=== PATIENT | female | born 1940 | race Caucasian/White ===

== ENCOUNTER 2021-05-05 01:55 | Emergency (ER) | payer MEDICARE, OTHER ==
[~2021-05-05] VITALS: Ht 170.2 cm; Wt 64.5 kg
[~2021-05-05 01:55] MED LIST: BENADRYL50 MG PO; BENICAR20 MG PO; LEVAQUIN 5500 MG/TA1 PO; PEPCID 20MG TAB20 MG PO; PREDNISONE20 MG PO
[2021-05-05 01:56] VITALS: TEMP 98.1
[2021-05-05 02:12] LABS: BASO % 0.5 % (0.0-2.0); EOS % 0.1 % (0-4.0); GRAN # 6.8 (1.4-6.5); GRAN % 79.8 % (42.2-75.2); HEMOGLOBIN 11.5 g/dl (12.5-16.0); LYMPH # 1.4 (1.2-3.4); LYMPH % 16.9 % (20.0-51.0); MEAN CELL VOLUME 87 fl (80.0-100.0); MEAN CORPUSCULAR HEMOGLOBIN 28 pg (27.0-31.0); MEAN CORPUSCULAR HGB CONC 32 g/dl (33.0-37.0); MEAN PLATELET VOLUME 10.3 fl (7.4-10.4); MONO # 0.2 (0.1-0.6); MONO % 2.5 % (1.7-9.3); PLATELET COUNT 371 K/mm3 (130-400); RED BLOOD COUNT 4.14 M/mm3 (4.10-5.30); REDCELL DISTRIBUTION WIDTH-CV 14.2 % (11.5-14.5)
[2021-05-05 02:50] LABS: ALANINE AMINOTRANSFERASE 16 U/L (4-34); ALBUMIN 4.2 gm/dL (3.5-5.0); ALKALINE PHOSPHATASE 89 U/L (50-136); ANION GAP 10 mmol/L (7-16); AST,SGOT 17 U/L (15-37); BILIRUBIN,TOTAL 0.5 mg/dL (0.0-1.0); BLOOD UREA NITROGEN 24 mg/dL (7-17); CALCIUM 9.4 mg/dL (8.4-10.2); CARBON DIOXIDE 16 mmol/L (22-30); CHLORIDE 111 mmol/L (98-107); CREATININE, serum 1.37 (0.52-1.25); GLUCOSE 131 mg/dL (74-106); LIPASE 132 U/L (23-300); POTASSIUM 4.4 mmol/L (3.4-5.0); SODIUM 137 mmol/L (137-145); TOTAL PROTEIN 7.2 gm/dL (6.4-8.2)
[2021-05-05 02:51] LABS: C-REACTIVE PROTEIN < 0.5 mg/dL (0.0-0.9)
[2021-05-05 03:53] LABS: COLLECTION METHOD CATHETER
[2021-05-05 04:11] LABS: MUCOUS Present /lpf; PH 5 (5-8); SQUAMOUS EPITHELIAL 0-2 /hpf; URINE APPEARANCE Hazy; URINE BACTERIA Moderate /hpf; URINE BILIRUBIN Negative (NEGATIVE); URINE BLOOD 1+ (NEGATIVE); URINE COLOR Yellow; URINE GLUCOSE Negative (NEGATIVE); URINE KETONE 1+ (NEGATIVE); URINE LEUKOCYTE ESTERASE 2+ (NEGATIVE); URINE NITRATE Positive (NEGATIVE); URINE PROTEIN(semi-quant) Negative (NEGATIVE); URINE UROBILINOGEN Negative (NEGATIVE)
[2021-05-05] MEDS ORDERED: ZOFRAN ODT4 MG PO ×3 (05:01→05:09)
[2021-05-05] MEDS ORDERED: CEFTIN500 MG PO ×3 (05:01→05:09)
[2021-05-05 05:15] VITALS: BP 144/85; PULSE 88
[2021-05-06] MEDS ORDERED: DULCOLAX STOOL100 MG PO (20:13)
== END 2021-05-05 05:15 | disposition home or self-care (01) ==
LOC: COL.ER 01:55
PROVIDERS: Emergency Medicine
DX: S09.90XA Unspecified injury of head, initial encounter (principal); N39.0 Urinary tract infection, site not specified; I10 Essential (primary) hypertension; Z96.0 Presence of urogenital implants; Z79.899 Other long term (current) drug therapy; W22.8XXA Striking against or struck by other objects, initial encounter
CPT/HCPCS: J0696; J2405; J2550; J7030; Q9967

== ENCOUNTER 2021-05-06 15:48 | Emergency (ER) | payer MEDICARE, OTHER ==
[~2021-05-06] VITALS: Ht 170.2 cm; Wt 65.5 kg
[~2021-05-06 15:48] MED LIST changes: +CEFTIN500 MG PO; +ZOFRAN ODT4 MG PO
[2021-05-06 16:02] VITALS: TEMP 97.6
[2021-05-06 16:26] LABS: BASO % 0.5 % (0.0-2.0); EOS % 0.4 % (0-4.0); HEMATOCRIT 34.4 % (37.0-47.0); HEMOGLOBIN 10.8 g/dl (12.5-16.0); LYMPH # 1.3 (1.2-3.4); LYMPH % 16.3 % (20.0-51.0); MEAN CELL VOLUME 89 fl (80.0-100.0); MEAN CORPUSCULAR HEMOGLOBIN 28 pg (27.0-31.0); MEAN CORPUSCULAR HGB CONC 31 g/dl (33.0-37.0); MEAN PLATELET VOLUME 10.1 fl (7.4-10.4); MONO # 0.4 (0.1-0.6); MONO % 5.5 % (1.7-9.3); PLATELET COUNT 348 K/mm3 (130-400); RED BLOOD COUNT 3.88 M/mm3 (4.10-5.30); REDCELL DISTRIBUTION WIDTH-CV 14.6 % (11.5-14.5)
[2021-05-06 16:59] LABS: ALBUMIN 4.4 gm/dL (3.5-5.0); BILIRUBIN,TOTAL 0.5 mg/dL (0.0-1.0); C-REACTIVE PROTEIN 0.7 mg/dL (0.0-0.9); CALCIUM 9.7 mg/dL (8.4-10.2); CREATININE, serum 1.49 (0.52-1.25); POTASSIUM 4.6 mmol/L (3.4-5.0); TOTAL PROTEIN 7.5 gm/dL (6.4-8.2)
[2021-05-06] MEDS ORDERED: DULCOLAX STOOL100 MG PO (20:13)
[2021-05-06 20:38] VITALS: BP 168/105; PULSE 72
== END 2021-05-06 20:41 | disposition home or self-care (01) ==
LOC: COL.ER 15:48
PROVIDERS: Family Medicine; Nurse Practitioner Primary Care
DX: K56.41 Fecal impaction (principal); I10 Essential (primary) hypertension; Z79.899 Other long term (current) drug therapy
CPT/HCPCS: J7030

== ENCOUNTER 2021-05-11 16:57 | Emergency (ER) | payer MEDICARE, OTHER ==
[~2021-05-11] VITALS: Ht 170.2 cm; Wt 63.6 kg
[~2021-05-11 16:57] MED LIST changes: +DULCOLAX STOOL100 MG PO
[2021-05-11 17:00] VITALS: TEMP 96.1
[2021-05-11 17:39] LABS: BASO % 0.4 % (0.0-2.0); EOS # 0.1 (0.0-0.7); EOS % 0.8 % (0-4.0); GRAN # 7.9 (1.4-6.5); GRAN % 81.5 % (42.2-75.2); HEMOGLOBIN 10.4 g/dl (12.5-16.0); LYMPH # 1.2 (1.2-3.4); LYMPH % 12.3 % (20.0-51.0); MEAN CELL VOLUME 88 fl (80.0-100.0); MEAN CORPUSCULAR HEMOGLOBIN 28 pg (27.0-31.0); MEAN CORPUSCULAR HGB CONC 32 g/dl (33.0-37.0); MEAN PLATELET VOLUME 9.7 fl (7.4-10.4); MONO # 0.4 (0.1-0.6); MONO % 4.5 % (1.7-9.3); PLATELET COUNT 323 K/mm3 (130-400); RED BLOOD COUNT 3.69 M/mm3 (4.10-5.30); REDCELL DISTRIBUTION WIDTH-CV 14.6 % (11.5-14.5)
[2021-05-11 17:47] LABS: HEMATOCRIT 32.3 % (37.0-47.0)
[2021-05-11 17:48] LABS: ALANINE AMINOTRANSFERASE 18 U/L (4-34); ALBUMIN 3.9 gm/dL (3.5-5.0); ALKALINE PHOSPHATASE 71 U/L (50-136); ANION GAP 9 mmol/L (7-16); AST,SGOT 26 U/L (15-37); BILIRUBIN,TOTAL 0.2 mg/dL (0.0-1.0); BLOOD UREA NITROGEN 19 mg/dL (7-17); CALCIUM 9.1 mg/dL (8.4-10.2); CARBON DIOXIDE 22 mmol/L (22-30); CHLORIDE 105 mmol/L (98-107); CREATININE, serum 1.69 (0.52-1.25); GLUCOSE 153 mg/dL (74-106); POTASSIUM 4.3 mmol/L (3.4-5.0); SODIUM 137 mmol/L (137-145)
[2021-05-11 18:07] LABS: COLLECTION METHOD CLEAN CATCH
[2021-05-11 18:13] LABS: PH 6 (5-8); SQUAMOUS EPITHELIAL None Seen /hpf; URINE APPEARANCE Clear; URINE BACTERIA None Seen /hpf; URINE BILIRUBIN Negative (NEGATIVE); URINE BLOOD Negative (NEGATIVE); URINE COLOR Straw; URINE GLUCOSE Negative (NEGATIVE); URINE KETONE Negative (NEGATIVE); URINE LEUKOCYTE ESTERASE Negative (NEGATIVE); URINE NITRATE Negative (NEGATIVE); URINE PROTEIN(semi-quant) Negative (NEGATIVE); URINE RBC 0-2 /hpf; URINE UROBILINOGEN Negative (NEGATIVE)
[2021-05-11 18:13] LABS: C-REACTIVE PROTEIN 0.6 mg/dL (0.0-0.9)
[2021-05-11] MEDS ORDERED: BENICAR 20MG TA20 MG PO (18:18)
[2021-05-11] MEDS ORDERED: ASPIRIN 81M81 MG/TA2 PO (18:19)
[2021-05-11 19:15] LABS: TROPONIN-I < 0.012 ng/mL (0.000-0.035)
[2021-05-11 21:10] VITALS: BP 136/74; PULSE 92
== END 2021-05-11 21:23 | disposition short-term general hospital (02) ==
LOC: COL.ER 16:57
PROVIDERS: Nurse Practitioner
DX: I62.00 Nontraumatic subdural hemorrhage, unspecified (principal); N39.0 Urinary tract infection, site not specified; I10 Essential (primary) hypertension; Z20.822 Contact with and (suspected) exposure to COVID-19
CPT/HCPCS: J1953; J7030; J7050

== ENCOUNTER 2022-04-02 21:58 | Emergency (ER) | payer MEDICARE, OTHER ==
[~2022-04-02] VITALS: Ht 170.2 cm; Wt 65.9 kg
[~2022-04-02 21:58] MED LIST changes: +ASPIRIN 81M81 MG/TA2 PO; +BENICAR 20MG TA20 MG PO; +CEFTIN 250250 MG/TAB PO; +COLACE 100100 MG/CAP PO; +MAGCITRATE PO
[2022-04-02 22:21] VITALS: TEMP 98.9
[2022-04-03 02:15] VITALS: BP 127/81; PULSE 85
== END 2022-04-03 02:15 | disposition home or self-care (01) ==
LOC: COL.ER 21:58
DX: K59.00 Constipation, unspecified (principal)

== ENCOUNTER 2024-05-13 14:35 | Inpatient (IN) | payer MEDICARE ==
[~2024-05-13] VITALS: Ht 167.6 cm; Wt 59.4 kg
[~2024-05-13 14:35] MED LIST changes: +CEPHALEXIN500 M1 PO; +FLEXERIL 1010 MG/TAB PO; +LIDODERM 5% PATC1 EA TP
[2024-05-13 15:14] LABS: COLLECTION METHOD CATHETER
[2024-05-13] MEDS ORDERED: LR 1,000 ML IV ONE (15:15)
[2024-05-13 15:54] LABS: URINE APPEARANCE CLEAR (CLEAR/HAZY); URINE COLOR Yellow (YELLOW)
[2024-05-13 15:55] LABS: URINE BLOOD Negative (NEGATIVE); URINE GLUCOSE Negative (NEGATIVE); URINE KETONE Negative (NEGATIVE); URINE NITRATE Negative (NEGATIVE); URINE PROTEIN(semi-quant) Negative (NEGATIVE); URINE UROBILINOGEN 0.2 E.U/dL (0.2-1.0)
[2024-05-13 16:02] LABS: SQUAMOUS EPITHELIAL 0-2 /hpf (0-10); URINE BACTERIA NONE SEEN /hpf (NONE SEEN); URINE RBC 0-2 /hpf (0-2); URINE WBC 0-2 /hpf (0-2)
[2024-05-13 16:03] LABS: BUDDING YEAST PRESENT (NOT PRESENT)
[2024-05-13 16:08] LABS: BASO # 0.1 K/mm3 (0.0-0.2); BASO % 0.7 % (0.0-2.0); EOS # 0.1 K/mm3 (0.0-0.7); EOS % 1.6 % (0.0-4.0); GRAN % 82.6 % (42.2-75.2); HEMATOCRIT 39.6 % (37.0-47.0); LYMPH # 0.8 K/mm3 (1.2-3.4); LYMPH % 9.8 % (20.0-51.0); MEAN CELL VOLUME 86 fl (80.0-100.0); MEAN CORPUSCULAR HEMOGLOBIN 28 pg (27-31); MEAN CORPUSCULAR HGB CONC 33 g/dl (33.0-37.0); MEAN PLATELET VOLUME 9.5 fl (7.4-10.4); MONO # 0.4 K/mm3 (0.1-0.6); MONO % 4.9 % (1.7-9.3); PLATELET COUNT 465 K/mm3 (130-400); RED BLOOD COUNT 4.59 M/mm3 (4.10-5.30); REDCELL DISTRIBUTION WIDTH-CV 15.4 % (11.5-14.5)
[2024-05-13 16:28] LABS: ALBUMIN 3.9 g/dL (3.4-4.8); BILIRUBIN,TOTAL 0.3 mg/dL (0.2-1.2); CALCIUM 10.3 mg/dL (8.4-10.2); CREATININE, serum 1.78 mg/dL (0.57-1.11); MAGNESIUM 2.1 mg/dL (1.6-2.6); POTASSIUM 4.3 mEq/L (3.5-4.5); TOTAL PROTEIN 7.8 g/dl (6.2-8.1)
[2024-05-13] MEDS ORDERED: Heparin 5,000 UNITS/ML 1 ML VIAL SQ SCH (17:40)
[2024-05-13] MEDS ORDERED: FLEXERIL 1010 MG/TAB PO (17:42)
[2024-05-13] MEDS ORDERED: ASPIRIN E.C. 8181 MG PO (17:43)
[2024-05-13 17:45] VITALS: BP 148/98; PULSE 79; TEMP 97.6
[2024-05-13] MEDS ORDERED: Ondansetron 4 MG/2 ML VIAL IV PRN (17:45)
[2024-05-13] MEDS ORDERED: hydrALAZINE 10 MG TAB PO PRN (17:45)
[2024-05-13] MEDS ORDERED: Morphine 4 MG/ML VIAL IV PRN (17:45)
[2024-05-13] MEDS ORDERED: NS 1,000 ML IV SCH (17:45)
[2024-05-13] MEDS ORDERED: Acetaminophen 325 MG TAB PO PRN (17:45)
[2024-05-13] MEDS ORDERED: cefTRIAXone 1 G in Water For Injection,Sterile 10 ML IV SCH (17:45)
[2024-05-13] MEDS ORDERED: *Potassium Replacement Protocol MC SCH (18:15)
[2024-05-13 18:46] VITALS: BP_SYST 149
[2024-05-13 20:00] VITALS: BP 145/86; PULSE 78; TEMP 97.5
[2024-05-13 23:51] VITALS: BP 128/76; PULSE 73; TEMP 97.4
[2024-05-14] VITALS (10 sets, daily range): BP systolic 128–155; BP diastolic 87–96; PULSE 72–88; TEMP 97.5–98.1
[2024-05-14] MEDS ORDERED: Heparin 5,000 UNITS/ML 1 ML VIAL SQ SCH (04:00)
[2024-05-14 06:40] LABS: BASO # 0.1 K/mm3 (0.0-0.2); BASO % 0.6 % (0.0-2.0); EOS # 0.2 K/mm3 (0.0-0.7); GRAN # 5.5 K/mm3 (1.4-6.5); GRAN % 70.9 % (42.2-75.2); LYMPH # 1.6 K/mm3 (1.2-3.4); LYMPH % 20.3 % (20.0-51.0); MEAN CELL VOLUME 84 fl (80.0-100.0); MEAN CORPUSCULAR HGB CONC 34 g/dl (33.0-37.0); MONO # 0.5 K/mm3 (0.1-0.6); MONO % 5.7 % (1.7-9.3); PLATELET COUNT 436 K/mm3 (130-400); RED BLOOD COUNT 3.78 M/mm3 (4.10-5.30); REDCELL DISTRIBUTION WIDTH-CV 15.2 % (11.5-14.5)
[2024-05-14 06:45] LABS: HEMATOCRIT 31.6 % (37.0-47.0); HEMOGLOBIN 10.8 g/dl (12.5-16.0); MEAN CORPUSCULAR HEMOGLOBIN 29 pg (27-31)
--- NOTE | 2024-05-14 06:45 | NUR ---
PT RESTING IN BED. PT IS CONFUSED, BUT ABLE TO STATE NAME. PT REORIENTED TO PLACE AND TIME. PT INSTRUCTED FIXED INCOME PORTFOLIO MANAGER LIGHT AND TO CALL FOR ALL NEEDS, AND NOT TO GET UP WITHOUT ASSISTANCE. PT IS A HIGH FALL RISK. FALL PRECAUTIONS IN PLACE, BED ALARM ACTIVE. PT IS ON RA. PT IS NOT ON TELE.
[2024-05-14 07:01] LABS: ALBUMIN 3.3 g/dL (3.4-4.8); CALCIUM 9.3 mg/dL (8.4-10.2); CREATININE, serum 1.4 mg/dL (0.57-1.11); MAGNESIUM 1.8 mg/dL (1.6-2.6); PHOSPHOROUS 2.3 mg/dL (2.3-4.7); POTASSIUM 3.6 mEq/L (3.5-4.5)
--- NOTE | 2024-05-14 10:50 | NUR ---
Data: Spiritual care visit offered during Narrow Fab[employer] Loom Fixer rounds. Patient declined. Assessment: None. Patient declined. Plan of Care: Educated Patient as to how to contact N[employer] L[employer]er should he change his mind. Chaplains will remain available as requested while Patient is admitted to this hospital.
[2024-05-14] MEDS ORDERED: Potassium Bicarbonate/Citrate 20 MEQ Effervescent TAB PO SCH (11:15)
[2024-05-14] MEDS ORDERED: Miconazole 2% Topical Powder BOTTLE TP PRN (12:15)
--- NOTE | 2024-05-14 12:29 | NUR ---
NICKI met with patient and son Buddy ([phone]) to complete initial assessment for discharge planning. Patient presented with increased confusion and disorientation, but able to verify most information with son's assistanace. Patient states she lives alone in [place] with her daughter Kamille Rodriguez ([phone]) living within a block away. Patient has been seeing Dr. Reed Kramer as her PCP but son states they have been trying to establish with a new PCP. Patient uses [facility] and uses a cane, FWW and shower chair at home. Patient states she wants to return home but is accepting of need for rehab prior to returning home. Son stated that they have talked with Erika at [facility] and would like referral sent there. Medicare.gov list of area SNF facilities left for their review and asked that an alternate choice be provided as back up. Son agreeable and will discuss with his siblings. Referral sent to [facility]. Discharge plan: SNF
--- NOTE | 2024-05-14 15:45 | NUR ---
SW received call from patient's daughter Kamille asking for SW to return to room to answer questions. Kamille informed of plan to discharge patient to SNF. Kamille agreeable and named [facility] as their second choice. Referral sent via secure email to [facility]. All questions answered. Discharge plan: SNF
[2024-05-14] MEDS ORDERED: Haloperidol Lactate 5 MG/ML VIAL IV ONE (23:45)
[2024-05-15] VITALS (10 sets, daily range): BP systolic 124–157; BP diastolic 70–95; PULSE 68–103; TEMP 97.7–98.6
[2024-05-15] MEDS ORDERED: Haloperidol Lactate 5 MG/ML VIAL IV ONE (04:15)
--- NOTE | 2024-05-15 06:00 | NUR ---
ASSESSMENT COMPLETE FOR BOTTLE TESTER. pt HAD A PRETTY ROUGH NIGHT. pt WAS VERY CONFUSED, COMBATIVE, THREATENING, BED JUMPING (TRYING), REFUSED HER HEPARIN AND MIDNIGHT VITALS. HOSPITALIST CALLED. HALDOL ORDERED AND GIVEN TWICE. THE HALDOL DIDN'T HELP MUCH. pt's SON AND DAUGHTER CALLED SEVERAL TIMES, PER pt's REQUEST. WILL CONTINUE TO MONITOR. FALL PRECAUTIONS IN PLACE. BED ALARM ON. CALL LIGHT WITHIN REACH.
[2024-05-15 07:20] LABS: ALBUMIN 3.3 g/dL (3.4-4.8); CALCIUM 9.3 mg/dL (8.4-10.2); CREATININE, serum 1.2 mg/dL (0.57-1.11); MAGNESIUM 1.8 mg/dL (1.6-2.6); PHOSPHOROUS 2.7 mg/dL (2.3-4.7); POTASSIUM 4.1 mEq/L (3.5-4.5)
[2024-05-15 08:56] LABS: BASO # 0.1 K/mm3 (0.0-0.2); BASO % 0.7 % (0.0-2.0); EOS # 0.2 K/mm3 (0.0-0.7); EOS % 2.8 % (0.0-4.0); GRAN # 5.3 K/mm3 (1.4-6.5); GRAN % 75.6 % (42.2-75.2); HEMATOCRIT 34.3 % (37.0-47.0); HEMOGLOBIN 11.2 g/dl (12.5-16.0); LYMPH % 14.1 % (20.0-51.0); MEAN CELL VOLUME 86 fl (80.0-100.0); MEAN CORPUSCULAR HEMOGLOBIN 28 pg (27-31); MEAN CORPUSCULAR HGB CONC 33 g/dl (33.0-37.0); MONO # 0.5 K/mm3 (0.1-0.6); MONO % 6.7 % (1.7-9.3); PLATELET COUNT 407 K/mm3 (130-400); RED BLOOD COUNT 3.97 M/mm3 (4.10-5.30); REDCELL DISTRIBUTION WIDTH-CV 15.6 % (11.5-14.5)
[2024-05-15] MEDS ORDERED: QUEtiapine 25 MG TAB PO SCH (11:14)
--- NOTE | 2024-05-15 11:16 | NUR ---
Clinical updates sent via secure email to Roberto and TERESA. SW attempted to call Roberto to follow up on referral. No answer unable to leave message. Discharge Plan: SNF
--- NOTE | 2024-05-15 14:03 | NUR ---
NICKI notified by Ileana at [facility] that they have accepted patient for SNF admission. Possible discharge on Thursday per documentation. NICKI informed by RN that patient's family had questions related to IPR vs SNF. SW went to meet with family but was told they had already left. NICKI attempted to call Kamille, daughter, without answer or ability to leave message. NICKI called Buddy, son, and gave update on acceptance to [facility] and discussed patient's increased confusion and restlessness today requiring move to room closer to nurse's station. Buddy states he plans to be at hospital tomorrow morning to discuss patient status with physician. [facility]charge [facility]
[2024-05-15] MEDS ORDERED: LORazepam 0.5 MG TAB PO ONE (16:00)
[2024-05-16] VITALS (14 sets, daily range): BP systolic 90–170; BP diastolic 63–103; PULSE 81–109; TEMP 97.5–98.1
[2024-05-16 06:54] LABS: BASO % 0.6 % (0.0-2.0); EOS # 0.2 K/mm3 (0.0-0.7); EOS % 2.8 % (0.0-4.0); GRAN % 77.8 % (42.2-75.2); HEMOGLOBIN 10.4 g/dl (12.5-16.0); LYMPH # 0.8 K/mm3 (1.2-3.4); LYMPH % 12.1 % (20.0-51.0); MEAN CELL VOLUME 88 fl (80.0-100.0); MEAN CORPUSCULAR HEMOGLOBIN 28 pg (27-31); MEAN CORPUSCULAR HGB CONC 32 g/dl (33.0-37.0); MEAN PLATELET VOLUME 9.6 fl (7.4-10.4); MONO # 0.4 K/mm3 (0.1-0.6); MONO % 6.4 % (1.7-9.3); PLATELET COUNT 352 K/mm3 (130-400); RED BLOOD COUNT 3.67 M/mm3 (4.10-5.30)
[2024-05-16 07:05] LABS: HEMATOCRIT 32.1 % (37.0-47.0)
[2024-05-16 07:21] LABS: ALBUMIN 3.3 g/dL (3.4-4.8); CALCIUM 9.5 mg/dL (8.4-10.2); CREATININE, serum 1.16 mg/dL (0.57-1.11); MAGNESIUM 1.8 mg/dL (1.6-2.6); PHOSPHOROUS 3.4 mg/dL (2.3-4.7); POTASSIUM 4.2 mEq/L (3.5-4.5)
--- NOTE | 2024-05-16 10:06 | NUR ---
PATIENT ASSISTED FROM BED TO RECLINER THIS MORNING, COMPLETE BED CHANGE AND BATH WIPE DOWN PROVIDED. PATIENT GIVEN BREAKFAST AND ENCOURAGED TO EAT, PATIENT CONTINUES TO HAVE NOT MUCH OF AN APPETITE. CHAIR ALARM IN PLACE, CALL BUTTON WITHIN REACH. PATIENT CONTINUES TO BE CONFUSED. FAMILY AT BEDSIDE AND UPDATED ON PLAN OF CARE. MEPILEX DRESSING PLACE TO COCCYX ULCER. PATIENT CURRENTLY ON ROOM AIR. NO IV ACCESS PER ORDERS. MORNING MEDICATIONS ADMINISTERED PER eMAR. WILL CONTINUE TO MONITOR.
--- NOTE | 2024-05-16 14:39 | NUR ---
Tester Compressed Gases met with patient's children, Buddy and Kamille to review discharge plan. Their first preference is still [facility]. SW contacted Ileana at [facility] and faxed updates.
--- NOTE | 2024-05-16 22:40 | NUR ---
THIS RN TOOK OVER CARE FOR THIS PATIENT FROM [facility] AT 2230. PATIENT LAYING IN BED, ALERT AND ORIENTED TO SELF ONLY. NO ACUTE EVENTS.
--- NOTE | 2024-05-16 22:50 | NUR ---
patient lyining in bed, alert and oriented to self only, with confusion and forgetfullness. jumping out of bed, sate in recliner for 30 minutes prior to returning to bed, able to redirect attention while folding towels briefly. IV in LAC is patent, site CDI. pt to be NPO at midnight. mepilex dressing on coccyx ulcer, no redness noted, excoriation to grion, generalized bruising to extremities and a large bruise noted to left hip. pt reports given to SHAWN No, care passed at this time.
[2024-05-17] VITALS (16 sets, daily range): BP systolic 91–159; BP diastolic 62–91; PULSE 71–100; TEMP 97.4–98.1
--- NOTE | 2024-05-17 07:00 | NUR ---
appears to be sleeing, resp quiet and easy, bedside shift report received from SHAWN No
[2024-05-17 07:13] LABS: BASO # 0.1 K/mm3 (0.0-0.2); BASO % 0.7 % (0.0-2.0); EOS # 0.2 K/mm3 (0.0-0.7); EOS % 2.8 % (0.0-4.0); GRAN # 5.5 K/mm3 (1.4-6.5); GRAN % 79.7 % (42.2-75.2); HEMOGLOBIN 10.8 g/dl (12.5-16.0); LYMPH # 0.8 K/mm3 (1.2-3.4); MEAN CELL VOLUME 88 fl (80.0-100.0); MEAN CORPUSCULAR HEMOGLOBIN 29 pg (27-31); MEAN CORPUSCULAR HGB CONC 33 g/dl (33.0-37.0); MONO # 0.4 K/mm3 (0.1-0.6); MONO % 5.4 % (1.7-9.3); PLATELET COUNT 335 K/mm3 (130-400); RED BLOOD COUNT 3.72 M/mm3 (4.10-5.30)
[2024-05-17 07:14] LABS: HEMATOCRIT 32.8 % (37.0-47.0)
[2024-05-17 07:25] LABS: ALBUMIN 3.2 g/dL (3.4-4.8); CALCIUM 9.4 mg/dL (8.4-10.2); CREATININE, serum 1.15 mg/dL (0.57-1.11); MAGNESIUM 1.8 mg/dL (1.6-2.6); PHOSPHOROUS 2.8 mg/dL (2.3-4.7); POTASSIUM 4.1 mEq/L (3.5-4.5)
--- NOTE | 2024-05-17 08:20 | NUR ---
telesitter reminding patient to stay in bed, entered room and patient asks where she is and what all the stuff in the room is, attempted to reorient, is oriented to self only, asking about her daughter and explained it was only 815 in the morning so daughter isn't here, remains in bed
--- NOTE | 2024-05-17 09:01 | NUR ---
in bed and appears to be sleeping, resp quiet and easy
--- NOTE | 2024-05-17 09:30 | NUR ---
physical therapy in to work with patient, she remains confused and asking where she is and what is going on, reoriented and explained to her where she was, asking about her daughter and explained she would be in later, is not wanting to take a walk but does walk to the door, therapist states that after she got back into bed she was tearful because she doesn't know what is going on
--- NOTE | 2024-05-17 10:15 | NUR ---
remains confused and a little agitated, finally, with much encouragement, she did take seroquel and ASA, full assessment completed, see interventions for further info, her groin area is red and excoriated, has mepiplex dressing to cocyx,
--- NOTE | 2024-05-17 10:25 | NUR ---
spoke with daughter regarding approx length of time for a vertebroplaxty and that will plan for her to discharge to [facility] after the procedure, disappointed about this but verbalizes understanding
[2024-05-17] MEDS ORDERED: QUEtiapine 25 MG TAB PO PRN (10:30)
--- NOTE | 2024-05-17 12:03 | NUR ---
SHAWN Cleveland from laborer hoisting here to take patient for verterbroplasty, patient remains confused and is refusing to go for procedure, SHAWN Cleveland attempted to call Kamille, patient's daughter and left a message
--- NOTE | 2024-05-17 12:40 | NUR ---
daughter is here and appears upset because her mom is so confused and agitated, is asking to talk with the Dr. Dr Boothe notified and states she cannot see the daughter and will try to later this afternoon, SHAWN Cleveland in labor relations worker was notified by SHAWN Mohamud that the daughter is here, patient is continuuing to refuse and has also refused vital signs
--- NOTE | 2024-05-17 12:53 | NUR ---
SHAWN Cleveland from general labor here to talk with patient and her daughter
[2024-05-17] MEDS ORDERED: Ketorolac 15 MG/ML VIAL IV PRN (13:00)
--- NOTE | 2024-05-17 13:05 | NUR ---
spoke with daughter and she spoke with Megha and will plan for procedure at 1330
--- NOTE | 2024-05-17 13:22 | NUR ---
Hospitalist met with NICKI and advised patient can be discharged after her procedure today. NICKI updated Ileana with [facility] and advised clinical updates would be faxed once patient is back from her procedure, which should take place around 1130. NICKI contacted patient's daughter, Kamille who stated she would prefer discharge tomorrow. NICKI explained that per Hospitalist, patient will be stable for discharge. NICKI was notified later that patient refused procedure and was confused. Patient's daughter, Kamille came in to speak with patient and they would like to proceed with procedure. NICKI updated Ileana at [facility].
--- NOTE | 2024-05-17 13:40 | NUR ---
to labor and delivery nurse per bed for verterbroplasty, daughter at bedside
[2024-05-17] MEDS ORDERED: Acetaminophen 500 MG TAB PO SCH (14:00)
--- NOTE | 2024-05-17 14:04 | NUR ---
SEE MERGE FOR PROCEDURE DOCUMENTATION
[2024-05-17] MEDS ORDERED: Midazolam 2 MG/2 ML VIAL IV SCH (14:38)
[2024-05-17] MEDS ORDERED: fentaNYL 50 MCG/ML 2 ML VIAL IV SCH (14:40)
--- NOTE | 2024-05-17 15:00 | NUR ---
retuned from lab associate after having vertebroplasty, is alert when name is called but does go back to sleep quickly, daughter is at bedside
--- NOTE | 2024-05-17 15:12 | NUR ---
PATIENT DROWSY BUT RESPONDS TO COMMANDS AND ANSWERS QUESTIONS APPROPRIATELY. TRANSFERRED TO BED FROM XRAY TABLE WITH FULL ASSIST AND TRANSPORTED TO MEDICAL 312. PATIENT DENIES PAIN. VITAL SIGNS TAKEN ON ARRIVAL, VSS. PLAN OF CARE REVIEWED WITH DAUGHTER, QUESTIONS INVITED. PATIENT PROVIDED CALL LIGHT, BED TO LOWEST POSITION, X3 BEDRAILS IN PLACE. TRANSFER OF CARE TO SHAWN MACDONALD.
--- NOTE | 2024-05-17 15:14 | NUR ---
apron worker worker spoke with SHAWN Gutierrez who reports pt was not up from procedure yet at 1430. She will require an hour flat time. NICKI spoke with Ileana at [facility] who states it is getting too late in the day to accept pt back following her out of procedure, also they would like her to be monitored following the procedure. NICKI informed SHAWN Gutierrez and Dr. Boothe of the above. NICKI faxed updates to [facility]. NICKI received a call from [place] at [facility] reporting one of pt's son's called questioning the discharge plan and he has not heard anything since Thursday's updates. NICKI advised pt has secured placement elsewhere for tomorrow. He reports having previously worked with pt's son on placement. NICKI called and left for pt's daughter to ensure there were no concerns. NICKI called pt's son, Buddy to confirm the plan. He reports he did not call [facility] and likely his brother, Devin from [place] had as he was previously assisting. Buddy has no concerns for thr dicharge plan and will arrive tomorrow morning. Discharge Plan: [facility]
--- NOTE | 2024-05-17 15:15 | NUR ---
is resting when entered room, she awakens and is cooperaive and tells nurse she worked at [facility] in medical records, daughter does confirm this, she denies needs, taking sips of water and tolerates well
--- NOTE | 2024-05-17 15:30 | NUR ---
informed daughter when she thinks her mom is ready to eat to let staff know and we can order her something to eat, verbalizes understanding
--- NOTE | 2024-05-17 16:00 | NUR ---
continues to doze, daughter remains at bedside
--- NOTE | 2024-05-17 16:50 | NUR ---
continues to doze off and on, awakened and offered her something to eat, she isn't ready right now, daughter will order her something to be delivered at 1800, denies other needs
--- NOTE | 2024-05-17 18:03 | NUR ---
has been lying flat for 3 hours after vetebroplasty, is ready to get up and sit in a chair, LIME SLUDGE MIXER in and will assist up in chair for supper
--- NOTE | 2024-05-17 18:53 | NUR ---
bedside shift report given to SHAWN Simental
--- NOTE | 2024-05-17 20:53 | NUR ---
THIS RN WAS IN ANOTHER ROOM AND HEARD PATIENT WAS IN HER ROOM GETTING QUITE FRUSTRATED. WHEN RN ARRIVED, PATIENT WAS SITTING UP IN CHAIR EXPRESSING IRRITATION THAT SHE WAS NOT GOING HOME TONIGHT AND DID NOT WANT TO TAKE ANY MEDICATIONS. RN COULD NOT HELP EASE THE AGITATION, THIS RN DID CALL DAUGHTER MARCIE.
--- NOTE | 2024-05-17 23:24 | NUR ---
PATIENT IS QUITE CONFUSED BUT WAS ABLE TO SETTLE DOWN AFTER SPEAKING TO HER DAUGHTER ON THE PHONE. ASSISTED PATIENT INTO BED WITH WALKER. TELESITTER PRESENT IN ROOM. CALL LIGHT IS WITHIN REACH. BED IS LOCKED AND IN LOW POSITION.
[2024-05-18] VITALS (12 sets, daily range): BP systolic 117–148; BP diastolic 77–91; PULSE 48–103; TEMP 97.3–98.2
--- NOTE | 2024-05-18 00:04 | NUR ---
RN NOTED THAT PATIENT HAD MINIMAL OUTPUT IN PUREWICK CANISTER. AFTER BLADDER SCANNING HER, 1120 ML OF LIQUID WAS SHOWN TO BE IN BLADDER. DISCUSSED WITH HOSPITALIST AND RECEIVED ORDER TO STRIGHT CATH NOW AND THEN Q6HR.
--- NOTE | 2024-05-18 01:19 | NUR ---
STRAIGHT CATHETERIZATION PERFORMED BY THIS RN WITH ASSISTANCE OF MEDICAL IMAGING TECHNICIAN. TOTAL AMOUNT OF 1850 ML OF URINE DRAINED.
--- NOTE | 2024-05-18 01:32 | NUR ---
PATIENT CONTINUES TO BE INCREDIBLY RESTLESS AND TELESITTER HAS HAD TO CALL MULTIPLE TIMES TO REMIND PATIENT TO STAY IN BED WHEN STAFF IS NOT IN ROOM. PATIENT IS UNABLE TO BE REDIRECTED DESPITE MULTIPLE ATTEMPTS BY THIS RN AND OTHER STAFF. CONTACTED HOSPITALIST AND RECEIVED ORDER FOR ZYPREXA 5 MG IM INJECTION.
[2024-05-18] MEDS ORDERED: OLANZapine 5 MG,Water For Injection,Sterile 1 ML IM ONE (01:45)
--- NOTE | 2024-05-18 04:35 | NUR ---
PATIENT CONTINUES TO BE VERY RESTLESS AND ATTEMPTING TO GET OUT OF BED. THIS RN HAS OFFERED TO ASSIST HER TO THE CHAIR, HOWEVER SHE DECLINED. ALSO DECLINED ALL OFFERS FOR SNACK, DRINK, OR ASSISTANCE WITH RAISING HEAD OF THE BED. TELESITTER REMAINS IN USE.
[2024-05-18 06:40] LABS: BASO % 0.6 % (0.0-2.0); EOS # 0.2 K/mm3 (0.0-0.7); EOS % 3.7 % (0.0-4.0); GRAN # 4.7 K/mm3 (1.4-6.5); HEMOGLOBIN 10.8 g/dl (12.5-16.0); LYMPH # 1.2 K/mm3 (1.2-3.4); LYMPH % 18.3 % (20.0-51.0); MEAN CELL VOLUME 88 fl (80.0-100.0); MEAN CORPUSCULAR HEMOGLOBIN 29 pg (27-31); MEAN CORPUSCULAR HGB CONC 33 g/dl (33.0-37.0); MEAN PLATELET VOLUME 9.6 fl (7.4-10.4); MONO # 0.3 K/mm3 (0.1-0.6); MONO % 5.1 % (1.7-9.3); PLATELET COUNT 379 K/mm3 (130-400); RED BLOOD COUNT 3.79 M/mm3 (4.10-5.30); REDCELL DISTRIBUTION WIDTH-CV 16.1 % (11.5-14.5)
[2024-05-18 06:51] LABS: HEMATOCRIT 33.2 % (37.0-47.0)
--- NOTE | 2024-05-18 06:51 | NUR ---
PATIENT GOT OUT OF CHAIR AND COULD NOT BE REDIRECTED TO SIT DOWN. ASSISTED PATIENT TO SIT ON COMMODE IT WAS THE ONLY SPOT SHE WAS WILLING TO SIT. CALLED DAUGHTER, MARCIE, TO TALK TO PATIENT. DAUGHTER STATED SHE WOULD BE HERE AROUND 0800 TO SIT IN ON PROVIDER ROUNDS.
[2024-05-18 06:59] LABS: ALBUMIN 3.4 g/dL (3.4-4.8); CALCIUM 9.6 mg/dL (8.4-10.2); CREATININE, serum 1.18 mg/dL (0.57-1.11); MAGNESIUM 1.8 mg/dL (1.6-2.6); PHOSPHOROUS 2.9 mg/dL (2.3-4.7)
--- NOTE | 2024-05-18 09:34 | NUR ---
Patient resting in bed, alert and oriented to self. Family at bedside. Seems in no pain. Confused in conversation. Reoriented. Assessment completed, meds given. Breakfast arriving. No further needs at this time. Call light within reach.
--- NOTE | 2024-05-18 13:14 | NUR ---
Orientor contacted Ileana at [facility] and faxed clinical updates. Ileana had her team review and they will not accept today as patient had IM medication for agitation and confusion over night. NICKI updated Hospitalist and medication is going to be changed to scheduled seroquel. NICKI updated patient's family at bedside. Discharge Plan: [facility]
--- NOTE | 2024-05-18 18:46 | NUR ---
Patient's son has been at bedside all day. Pt refuses straight cath. Pt bladder with 352 mls. caterer's aide nurse aware. Report given to SHAWN Simental. Family and pt aware of POC.
--- NOTE | 2024-05-18 19:51 | NUR ---
PATIENT IS UP IN CHAIR WITH SON PRESENT. SHE IS QUITE CONFUSED AND RESTLESS AT THIS TIME, ORIENTED TO SELF ONLY. SHE DENIES ANY PAIN AT THIS TIME. CALL LIGHT IS WITHIN REACH. CHAIR ALARM ON. TELESITTER IN USE.
[2024-05-18] MEDS ORDERED: QUEtiapine 25 MG TAB PO SCH (21:00)
[2024-05-19] VITALS (11 sets, daily range): BP systolic 132–164; BP diastolic 78–88; PULSE 74–95; TEMP 97.5–98.2
--- NOTE | 2024-05-19 06:00 | NUR ---
PATIENT HAS BEEN SLEEPING WELL OVERNIGHT BUT HAS NOT HAD ANY URINE OUTPUT. BLADDER SCAN DONE, 434 ML FOUND IN BLADDER. PATIENT EXTREMELY COMBATIVE AND REFUSES TO BE STRAIGHT CATHED AT THIS TIME.
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
[2024-05-19] MEDS ORDERED: OLANZapine 5 MG TAB PO PRN (09:00)
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
--- NOTE | 2024-05-19 09:48 | NUR ---
Patient resting in bed, daughter at bedside helping her to get her breakfast. Alert and oriented to self. Gets her morning pills. Assessment completed, no further needs at this time. Call light within reach, bed alarm. on.
[2024-05-19 11:52] LABS: COLLECTION METHOD CATHETER
--- NOTE | 2024-05-19 12:00 | NUR ---
Assisted primary nurse in straight cathing the patient- redness/excoriated noted to perianal area. Diana care provided. Medicated powder applied. 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 Possbile tunneled. Mepilex placed to coccyx. Chasidy Cardoso RN notified. Instructed AL Galvan that patietn will need to be on a q 2hr turn schedule. Dr. Boothe notified. Specialty mattress ordered. WCC placed. Pt currently sitting up in chair. Will have primary nurse place chair cushion and limit time in chair to avoid any further pressure injury issues.
[2024-05-19 12:03] LABS: URINE APPEARANCE CLOUDY (CLEAR/HAZY); URINE BLOOD NEGATIVE (NEGATIVE); URINE COLOR YELLOW (YELLOW); URINE GLUCOSE NEGATIVE (NEGATIVE); URINE KETONE TRACE (NEGATIVE); URINE NITRATE NEGATIVE (NEGATIVE); URINE PROTEIN(semi-quant) TRACE (NEGATIVE)
--- NOTE | 2024-05-19 12:10 | NUR ---
Straight cath done with Charge Nurse Sharla. Patient cooperates. Aproximateley 250 output obtained. Urine sample sent to lab. Hygiene provided. Mepilex placed on coccyx area.
[2024-05-19] MEDS ORDERED: Olmesartan 20 MG **** subs to Losartan 50 MG PO SCH (13:18)
[2024-05-19] MEDS ORDERED: Losartan 50 MG TAB PO SCH (13:30)
--- NOTE | 2024-05-19 14:33 | NUR ---
Pot Washer contacted Ileana at [facility] and faxed clinical updates. Early this morning patient was agitated, refusing to be straight cathed, and hitting staff. [facility] will not accept today. SW updated Hospitalist and attended clinical rounds with the team. Medications to be adjusted. SW met with patient's daughter, Kamille at bedside.
--- NOTE | 2024-05-19 16:20 | NUR ---
Documentation of pt's pressure ulcer done per policy. Image sent.
--- NOTE | 2024-05-19 20:34 | NUR ---
PATIENT IS RESTING IN BED WATCHING TV. REPORTS PAIN IN BACK, REPOSITIONED AND GAVE 1000 MG PO TYLENOL. CALL LIGHT IS WITHIN REACH. BED IS LOCKED AND IN LOW POSITION WITH BED ALARM ON
[2024-05-19] MEDS ORDERED: OLANZapine 5 MG TAB PO SCH (21:00)
[2024-05-20] VITALS (15 sets, daily range): BP systolic 137–170; BP diastolic 79–115; PULSE 75–90; TEMP 97.4–97.9
--- NOTE | 2024-05-20 00:08 | NUR ---
PCT SANDRO REPORTED PATIENT'S BLOOD PRESSURE OF 164/99. THIS RN GAVE 10 MG PO HYDRALAZINE WITH 2100 MEDS. PROVIDER STEPHANIE CAR LOADER INFORMED AND ADVISED RN TO CONTINUE TO MONITOR FOR ANY ASSOCIATED SYMPTOMS SUCH HEADACHE OR DIZZINESS AND CALL BACK IF BLOOD PRESSURE REMAINS ELEVATED WITH 0400 VITALS.
--- NOTE | 2024-05-20 03:36 | NUR ---
PCT REPORTED PATIENT'S BLOOD PRESSURE 170/115. THIS RN RECHECKED BP MANUALLY, RESULT WAS 190/110. CALLED HOSPITALISTSTEPHANIE NP, NEW ORDERS RECEIVED.
[2024-05-20] MEDS ORDERED: hydrALAZINE 20 MG/ML 1 ML VIAL IV ONE (03:45)
--- NOTE | 2024-05-20 06:38 | NUR ---
WITH ASSISTANCE OF SANDRO ESCOBAR, PCT SANDRO AND PCT MIGEUL ANGEL, THIS RN STRAIGHT CATHED PATIENT WITH AN OUTPUT OF 850 ML OF TEA COLORED URINE
--- NOTE | 2024-05-20 08:09 | NUR ---
UPON ASSESSMENT PT IS LYING IN BED, VSS ON ROOM AIR. PT IS ALERT, ORIENTED TO SELF ONLY. PT COOPERATES W/ CARES. ABLE TO TAKE PILLS WHOLE W/ SIPS OF WATER. BED ALARM ON AND CALL LIGHT IN REACH.
[2024-05-20] MEDS ORDERED: OLANZapine 5 MG TAB PO PRN (15:07)
--- NOTE | 2024-05-20 16:15 | NUR ---
Hand Frame Surgical Elastic Knitter faxed clinical updates to Ileana at [facility]. Patient had a better night/morning and was free of agitation/aggressive behaviors. Ileana stated unfortunately, they will not accept patient as they cannot meet her needs. Ileana stated the team felt patient would potentially need memory care, which they do not have available. SW contacted patient's daughter, Kamille after Ileana contacted her to notify her they are going to decline. Kamille is frustrated with this decision and [facility] and give patient more time/get more updates. Kamille also [facility] NICKI followed up with Ileana again, still they will not accept referral. NICKI spoke with Kamille again to request other options to send referrals to. Kamille stated she is going to speak with her brother and call SW back. Kamille advised they would like to possibly consider a SNF in as she has been to one there before.
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
--- NOTE | 2024-05-20 18:38 | NUR ---
PATIENT SEEMED TO HAVE A MUCH BETTER DAY. PATIENT CAN MAKE APPROPRIATE CONVERSATION AND IS NOT HAVING HALLUCINATIONS/NIGHTMARES ANYMORE. PATIENT SITTING UP IN CHAIR EATING DINNER.
[2024-05-21] VITALS (11 sets, daily range): BP systolic 110–160; BP diastolic 71–96; PULSE 75–102; TEMP 97.4–98.4
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
--- NOTE | 2024-05-21 09:26 | NUR ---
Patient is sitting up in chair, alert and oriented to self. Getting breakfast. Assisted to take pills one at a time. Having conversations as if she were at work. Assessment completed, meds given. No further needs at this time. Call light within reach. Chair alarm on, Telesitter in.
--- NOTE | 2024-05-21 11:33 | NUR ---
Data: [facility] referral number [phone]. Applier attempted to visit Patient. Moto Mix Operator Brooke requested Applier not visit due to Patient's state of confusion. RN confirmed that visit is not desirable at this time. Assessment: None at this time. Plan of Care: Chaplains will remain available as needed/requested while Patient is admitted to this hospital.
--- NOTE | 2024-05-21 12:51 | NUR ---
NICKI follow up with patient's daughter Kamille on status of family meeting for selection of agency for care. Kamille informed NICKI that her brother/patient's son is in the [place] area and that he is inquiring with previous agency that patient was at in the past. Kamille (patient's daughter) communicated that the family would like their mother/patient to nearby one of her children, with [place] denial, they are working on [place] as her son resides there. Kamille informed NICKI that the family was not open to any other agencies in the [facility] at this time. Kamille would follow up with care management team as she receives info. NICKI will also provide updates as she receives to patient's daughter.
--- NOTE | 2024-05-21 13:59 | NUR ---
SW received call from patient's son to discuss SNF referrals. He states that he is talking with his sister and brother to determine where they want referrals sent. Discussed [facility] [place], [place] and possibility of facilities in [facility] where one son lives. They will contact SW after they decide where they want referrals sent. Discharge plan: SNF
--- NOTE | 2024-05-21 15:14 | NUR ---
Patient's family requested referral to be sent to [facility], they were informed possibly will not be referred until Thursday. Patient's family are requesting another referral to be sent to [facility] with updated clinicals and they are researching a location in [facility] for referral to be sent, will follow up with SW on Thursday with info. NICKI did send [facility] referral packet today.
[2024-05-22] VITALS (12 sets, daily range): BP systolic 116–166; BP diastolic 74–93; PULSE 79–87; TEMP 97.4–98
--- NOTE | 2024-05-22 05:45 | NUR ---
ASSESSMENT COMPLETE FOR WATER RESOURCES PROJECT MANAGER. THE START OF THE SHIFT WAS A BIT ROUGH FOR pt. pt CONTINUES TO BE VERY CONFUSED, BUT NOT COMBATIVE THIS SHIFT. pt FINALLY ABLE TO SLEEP SOME THIS SHIFT. BLADDER SCANNED AND STRAIGHT CATHED. 850ML OUT. FALL PRECAUTIONS IN PLACE. BED ALARM ON. CALL LIGHT WITHIN REACH.
[2024-05-22 07:07] LABS: BASO % 0.6 % (0.0-2.0); EOS # 0.3 K/mm3 (0.0-0.7); EOS % 4.3 % (0.0-4.0); GRAN # 4.2 K/mm3 (1.4-6.5); GRAN % 67.3 % (42.2-75.2); HEMOGLOBIN 10.3 g/dl (12.5-16.0); LYMPH # 1.3 K/mm3 (1.2-3.4); LYMPH % 21.1 % (20.0-51.0); MEAN CELL VOLUME 89 fl (80.0-100.0); MEAN CORPUSCULAR HEMOGLOBIN 29 pg (27-31); MEAN CORPUSCULAR HGB CONC 33 g/dl (33.0-37.0); MEAN PLATELET VOLUME 10.2 fl (7.4-10.4); MONO # 0.4 K/mm3 (0.1-0.6); MONO % 6.2 % (1.7-9.3); PLATELET COUNT 388 K/mm3 (130-400); RED BLOOD COUNT 3.56 M/mm3 (4.10-5.30); REDCELL DISTRIBUTION WIDTH-CV 16.6 % (11.5-14.5)
[2024-05-22 07:10] LABS: HEMATOCRIT 31.7 % (37.0-47.0)
[2024-05-22 07:25] LABS: CALCIUM 9.3 mg/dL (8.4-10.2); CREATININE, serum 1.43 mg/dL (0.57-1.11); POTASSIUM 4.1 mEq/L (3.5-4.5)
--- NOTE | 2024-05-22 09:33 | NUR ---
Patient resting in bed, alert and oriented to self. She did not sleep well along the night, right now awake but tired and resting. Assessment completed, meds given with some apple sauce. No furthe rneeds at this time. Call light within reach.
[2024-05-22] MEDS ORDERED: NS 1,000 ML IV SCH (14:30)
--- NOTE | 2024-05-22 14:44 | NUR ---
SW attempted to reach patient's daughter Kamille, left voicemail requesting call back. SW contacted patient's son (Buddy) to follow up on pending alternative agencies that family preferred for referral for their mother's SNF care. At this time family was requesting [facility], and requested to resend to [facility] for another review with patients updates. The family is pending decision on a location in [place]. Buddy (patient's son) informed NICKI that [place] was their last resort. Buddy informed NICKI that patient was previously with [facility] in [place], and he conversed with patient navigator yesterday about his mother's current needs and level of care and understood from the patient navigator that his mother (patient) would be approriate for referral. NICKI informed Buddy (patient's son) that [facility] was not listed under SNF/penitentiary under medicare.gov and that its a IPR type program. Buddy was going to revisit with [facility] to verify and contacted NICKI back with information prior to sending this referral. At this time referrals have been sent to 2 agencies selected by family: [facility] & [facility] Discharge plan: SNF (pending referrals)
--- NOTE | 2024-05-22 15:24 | NUR ---
SW received call back from patient's son (Buddy) requesting SNF referral to be also sent as their 3rd choice to [facility]. He informed SW that after talking with patient navigator, he was informed it would be an approriate referral for their facility at this time. SW faxed referral for review.
--- NOTE | 2024-05-22 17:56 | NUR ---
Patient was sleeping until she got her breakfast. Ate half of it and came back to sleep. Pt has been calm and cooperative along the day. She had lunch and drank her protein shake. Pt allowed us to start an IV on her left arm to start fluids. She allowed us to scan her bladder. Right now watching TV. Report will be given to night RN.
[2024-05-23] VITALS (8 sets, daily range): BP systolic 125–173; BP diastolic 78–98; PULSE 81–99; TEMP 98.1–98.4
--- NOTE | 2024-05-23 05:07 | NUR ---
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 pt CONTINUES TO BE CONFUSED. pt SCREAMING, "I WANT TO GO HOME. WHY WANT YOU LET ME GO HOME? I NEED TO PUT ON MY CLOTHES SO I CAN GO HOME TO FEED MY ANIMALS. I GOT TO GET OUT OF HERE! I DON'T WANT TO WALK HOME IN THE DARK. YOU'RE TRYING TO MAKE ME WALK HOME IN THE DARK. I GOT TO GET OUT OF HERE, NOW!" pt PULL OUT HER IV AND REFUSED TO LET ME REPLACE IT. pt ALSO REFUSED HER EVENING MEDS AND PRN HTN MEDICATION (2000HRS & MIDNIGHT). HOSPITALIST NOTIFIED. WILL CONTINUE TO MONITOR pt. pt BLADDER SCANNED AROUND 0340HRS. 520 FOUND IN BLADDER. pt STRAIGHT CATHED. 620ML OUT. pt AGREED AND TOOK PRN HYDRALAZINE FOR HER 0400HR HIGH B/P. THAN AFTER A WHILE, pt WENT BACK TO SAYING SHE WANTED TO GO HOME. FALL PRECAUTIONS IN PLACE. BED ALARM ON. CALL LIGHT WITHIN REACH.
--- NOTE | 2024-05-23 07:05 | NUR ---
appears to be dozing, resp quiet and easy, bedside shift report received from SHAWN Noriega, telesitter in place
--- NOTE | 2024-05-23 07:38 | NUR ---
is awake and calling out and wanting to "get out of here", offered breakfast or applesauce and pudding and declines
--- NOTE | 2024-05-23 09:34 | NUR ---
resting in bed and is asking what time it is, explained it is morning and she would like to have the blinds open, she is cooperative at this time and oriented to self but thinks she is in [place], reoriented to place, wound care HAY STACKER was in to see patient, see report for further info, has mepilex dressing in place when pulled back see a pressure injury to cocyx, has had small amount fecal incontinence but was not under the meplex, care provided and barrier ointment placed, states she would try some breakfast, assisted with sitting up in bed and assisted her with breakfast, c/o some pain/discomfort when rolling to side and medicated with scheduled tylenol,
--- NOTE | 2024-05-23 09:34 | NUR ---
lab in to draw blood, patient is cooperating at this time with allwoing them to do this
--- NOTE | 2024-05-23 10:28 | NUR ---
physical therapy in to work with patient, she is pleasant and cooperative and smiling and ambulating in the chun
--- NOTE | 2024-05-23 10:40 | NUR ---
sitting up in recliner after ambulating in the chun, jaxson blue and cooperaative and blood drawn for lab, son in to visit
[2024-05-23 11:05] LABS: CALCIUM 9.3 mg/dL (8.4-10.2); CREATININE, serum 1.2 mg/dL (0.57-1.11)
--- NOTE | 2024-05-23 11:37 | NUR ---
daughter in to visit also and patient is being assessed for SNF placement
--- NOTE | 2024-05-23 12:45 | NUR ---
remains sitting up in chair, lunch at bedside and daughter to assist
--- NOTE | 2024-05-23 14:00 | NUR ---
sitting up in chair visiting with family
[2024-05-23] MEDS ORDERED: ZYPREXA2.5 MG PO (14:11)
[2024-05-23] MEDS ORDERED: TYLENOL 500MG500 MG PO (14:11)
[2024-05-23] MEDS ORDERED: ZYPREXA 5MG5 MG PO (14:11)
--- NOTE | 2024-05-23 14:27 | NUR ---
straight cath performed and approx 250ml clear yellow urine returned, mepiplex dressing with fecal incontinence on it and changed and barrier ointment applied to redness, DUMB WAITER OPERATOR in and will assist her with getting dressed
--- NOTE | 2024-05-23 14:49 | NUR ---
ready for discharge, discharge packet given to family who is ransporting patient, assisted into WC and discharged
--- NOTE | 2024-05-23 14:52 | NUR ---
Assembly Worker contacted Winnie, Lens Blank Gauger at [facility] who advised she will have two RNs come to screen patient today. NICKI contacted Bed, Civil Engineering Drafter at [facility] and left a message checking on referral. NICKI met with patient and son, Buddy to inquire about preference. Buddy stated they would discuss it as a family. NICKI received a message from [facility] advising they can accept patient and would like some updates. NICKI faxed them. NICKI followed up with patient's children, Buddy and Kamille who stated they want patient to to go to [facility] today. NICKI contacted [facility] who advised they can accept. Patient's children will transport this afternoon. NICKI faxed discharge orders to [facility] and provided report number to RN. Discharge Plan: [facility] Acute Re[facility] [place]
--- NOTE | 2024-05-23 15:06 | NUR ---
report called to Liane at [facility]
== END 2024-05-23 14:49 | DRG 515 ==
LOC: COL.ER 14:35 → MEDICAL 16:39
PROVIDERS: Emergency Medicine; Internal Medicine; ADMIT Internal Medicine
PROC: 0PU43JZ Supplement Thoracic Vertebra with Synthetic Substitute, Percutaneous Approach (ICD-10-PCS; principal; 2024-05-17)
DX: M48.54XA Collapsed vertebra, not elsewhere classified, thoracic region, initial encounter for fracture (principal); L89.153 Pressure ulcer of sacral region, stage 3; N17.9 Acute kidney failure, unspecified; F05 Delirium due to known physiological condition; M54.9 Dorsalgia, unspecified; R33.9 Retention of urine, unspecified; R45.1 Restlessness and agitation; I12.9 Hypertensive chronic kidney disease with stage 1 through stage 4 chronic kidney disease, or unspecified chronic kidney disease; N18.9 Chronic kidney disease, unspecified; Z79.82 Long term (current) use of aspirin; Z79.899 Other long term (current) drug therapy; Z88.8 Allergy status to other drugs, medicaments and biological substances
CPT/HCPCS: C1713; J0360; J0665-JZ; J0696; J1630; J1644; J1885; J2250; J2270; J2359; J3010; J3475; J7030; J7120

== ENCOUNTER 2024-07-24 11:15 | Inpatient (IN) | payer MEDICARE ==
[~2024-07-24] VITALS: Ht 167.6 cm; Wt 58.8 kg
[~2024-07-24 11:15] MED LIST changes: +TYLENOL 500MG500 MG PO; +ZYPREXA 5MG5 MG PO; +ZYPREXA2.5 MG PO
[2024-07-24] MEDS ORDERED: NS 1,000 ML IV ONE ×2 (12:00→13:15)
[2024-07-24 12:25] LABS: BASO # 0.1 K/mm3 (0.0-0.2); BASO % 0.4 % (0.0-2.0); EOS % 0.1 % (0.0-4.0); GRAN # 12.2 K/mm3 (1.4-6.5); GRAN % 88.9 % (42.2-75.2); LYMPH # 0.7 K/mm3 (1.2-3.4); LYMPH % 5.3 % (20.0-51.0); MEAN CELL VOLUME 87 fl (80.0-100.0); MEAN CORPUSCULAR HGB CONC 33 g/dl (33.0-37.0); MEAN PLATELET VOLUME 8.5 fl (7.4-10.4); MONO # 0.6 K/mm3 (0.1-0.6); MONO % 4.5 % (1.7-9.3); PLATELET COUNT 561 K/mm3 (130-400); RED BLOOD COUNT 3.41 M/mm3 (4.10-5.30)
[2024-07-24 12:27] LABS: HEMATOCRIT 29.6 % (37.0-47.0); HEMOGLOBIN 9.7 g/dl (12.5-16.0); MEAN CORPUSCULAR HEMOGLOBIN 28 pg (27-31)
[2024-07-24 12:46] LABS: ALBUMIN 2.9 g/dL (3.4-4.8); BILIRUBIN,TOTAL 0.2 mg/dL (0.2-1.2); C-REACTIVE PROTEIN 11.6 mg/dL (0.00-0.50); CALCIUM 9.8 mg/dL (8.4-10.2); CREATININE, serum 3.35 mg/dL (0.57-1.11); POTASSIUM 4.8 mEq/L (3.5-4.5); TOTAL PROTEIN 7.6 g/dl (6.2-8.1)
[2024-07-24] MEDS ORDERED: MIRALAX PA17 GM/Dose PO (14:21)
[2024-07-24] MEDS ORDERED: ZOLOFT 25MG25 MG PO (14:22)
[2024-07-24] MEDS ORDERED: ZYPREXA 5MG5 MG PO (14:22)
[2024-07-24] MEDS ORDERED: MELATIN 3 MG-11 TAB PO (14:24)
[2024-07-24] MEDS ORDERED: XANAX .25M0.25 MG/TA PO (14:24)
[2024-07-24] MEDS ORDERED: COZAAR 25MG25 MG/TAB PO (14:27)
[2024-07-24 14:51] LABS: COLLECTION METHOD IN
[2024-07-24 15:00] LABS: URINE APPEARANCE TURBID (CLEAR/HAZY); URINE BLOOD 3+ (NEGATIVE); URINE COLOR ORANGE (YELLOW); URINE GLUCOSE NEGATIVE (NEGATIVE); URINE KETONE TRACE (NEGATIVE); URINE NITRATE NEGATIVE (NEGATIVE); URINE PROTEIN(semi-quant) 2+ (NEGATIVE)
[2024-07-24] MEDS ORDERED: oxyCODONE 5 MG TAB PO PRN (15:15)
[2024-07-24] MEDS ORDERED: Acetaminophen 500 MG TAB PO PRN (15:15)
[2024-07-24] MEDS ORDERED: Melatonin 3 MG TAB PO PRN (15:15)
[2024-07-24] MEDS ORDERED: NS 1,000 ML IV SCH (15:15)
[2024-07-24 15:19] LABS: SQUAMOUS EPITHELIAL 20-50 /hpf (0-10); URINE RBC >50 /hpf (0-2); URINE WBC 20-50 /hpf (0-2)
[2024-07-24] MEDS ORDERED: Heparin 5,000 UNITS/ML 1 ML VIAL SQ SCH (16:00)
--- NOTE | 2024-07-24 16:05 | NUR ---
PATIENT ARRIVED TO FLOOR FROM ED. VSS. PATIENTS DAUGHTER ASSISTED WITH ADMISSION. PATIENT HAS WOUND TO COCCYX STAGE [address], PER PATEINTS DAUGHTER NURSING FACILITY HAS BEEN CARING FOR WOUND THAT APPEARED IN APRIL 2024. COE IN PLACE W/ MIN. ORANGE CLOUDY URINE. PATIENT IS INCONTIN. OF STOOL PER PATIENTS DOUGHTER, Q2 CHECKS/TURNS IN PLACE. ADMISSIONS, ASSESSMENT, AND MED REC COMPLETED. FALL PRECAUTIONS IN PLACE AND CALL LIGHT IN REACH.
[2024-07-24 17:00] VITALS: BP_SYST 110
[2024-07-24 17:11] VITALS: BP 108/65; PULSE 115; TEMP 98.4
[2024-07-24 17:34] VITALS: BP 110/61; PULSE 69; TEMP 97.4
--- NOTE | 2024-07-24 19:21 | NUR ---
PT SUPINE IN BED. NO COMPLAINTS AT THIS TIME. IV FLUIDS RUNNING. COE DRAINING, INDEPENDENT WITH NO KINKS. NO COMPLAINTS AT THIS TIME. 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
[2024-07-24 20:06] VITALS: BP 109/63; PULSE 66; TEMP 97.4
[2024-07-24 21:00] VITALS: BP_SYST 118
[2024-07-24 23:02] VITALS: BP 118/68; PULSE 71; TEMP 98.1
[2024-07-25] VITALS (12 sets, daily range): BP systolic 95–141; BP diastolic 60–74; PULSE 60–119; TEMP 97.5–98.9
--- NOTE | 2024-07-25 00:52 | NUR ---
ASSESSMENT COMPLETED EARLIER. MEDICATIONS ADMINISTERED PER EMAR. NO COMPLAINTS AT THIS TIME. CALLL LIGHT IS WITHIN REACH. PT TURNED Q2 HOURS
[2024-07-25 06:36] LABS: BASO # 0.1 K/mm3 (0.0-0.2); BASO % 0.8 % (0.0-2.0); EOS # 0.1 K/mm3 (0.0-0.7); GRAN # 4.8 K/mm3 (1.4-6.5); GRAN % 77.7 % (42.2-75.2); LYMPH # 0.8 K/mm3 (1.2-3.4); LYMPH % 13.7 % (20.0-51.0); MEAN CELL VOLUME 87 fl (80.0-100.0); MEAN CORPUSCULAR HGB CONC 33 g/dl (33.0-37.0); MONO # 0.4 K/mm3 (0.1-0.6); MONO % 6.1 % (1.7-9.3); RED BLOOD COUNT 2.59 M/mm3 (4.10-5.30); REDCELL DISTRIBUTION WIDTH-CV 14.1 % (11.5-14.5)
[2024-07-25 06:50] LABS: CALCIUM 8.3 mg/dL (8.4-10.2); CREATININE, serum 2.03 mg/dL (0.57-1.11); MAGNESIUM 1.9 mg/dL (1.6-2.6); POTASSIUM 4.1 mEq/L (3.5-4.5)
[2024-07-25 06:52] LABS: HEMATOCRIT 22.6 % (37.0-47.0); HEMOGLOBIN 7.4 g/dl (12.5-16.0); MEAN CORPUSCULAR HEMOGLOBIN 29 pg (27-31); MEAN PLATELET VOLUME 8.8 fl (7.4-10.4); PLATELET COUNT 437 K/mm3 (130-400)
--- NOTE | 2024-07-25 07:14 | NUR ---
ASHLY HILLIARD GIVEN CRITICAL LAB RESULT
[2024-07-25] MEDS ORDERED: Dextrose (Glucose) 15 GM (4 x 3.75 GM) Chewable TABLET PACK PO PRN (07:15)
[2024-07-25] MEDS ORDERED: Dextrose 50% Water 25 GM/50 ML SYRINGE IV PRN (07:15)
[2024-07-25] MEDS ORDERED: D5 1/2 NS 1,000 ML IV SCH (07:30)
[2024-07-25] MEDS ORDERED: OLANZapine 5 MG TAB PO SCH (09:00)
[2024-07-25] MEDS ORDERED: Sertraline 25 MG TAB PO SCH (09:00)
[2024-07-25] MEDS ORDERED: SEPTRA DS 8001 TAB PO (09:28)
[2024-07-25] MEDS ORDERED: PROBIOTIC ACID1 EAC3 PO (09:29)
--- NOTE | 2024-07-25 12:25 | NUR ---
D: Football Pad Repairer stopped by room on rounds. A: Pt was resting and content. Pt has no needs right now. P: Football Pad Repairer informed pt that if she needed anything from the retail store assistant area to let her nurse know. Football Pad Repairer will follow up as needed.
[2024-07-25] MEDS ORDERED: Sodium Bicarbonate 650 MG TAB PO SCH (12:30)
--- NOTE | 2024-07-25 14:10 | NUR ---
vegetable harvest worker met with patient and her daughter, Kamille Correia# [phone], to discuss discharge planning. Kamille answered all questions for patient. Patient currently lives at [facility]. Patient's PCP is Dr. Mattson, Pharmacy is [facility]. Insurance is Medicare A and B, [employer] Medicare Supplemental. DPOA-HC is Kamille brenna Devin. DME is wheelchair and has a walker but patient needs assistance with walking. Patient receives total support with ADLS. [facility] assists patient with transportation to and from appointments. Patient would like to return to [facility] at time of discharge. Patient also has [facility]. Kamille asked about patient's anxiety medications. NICKI contacted Tee at [facility]. Tee expressed patient was on 2.5 mg Zyprexa but was increased to 5 mg once a day in the last week, Tee reported patient also has Xanax .25 PRN and reported patient can get "worked up" especially towards the evening. NICKI notified Kathrin with pharmacy whom is going to discuss with Dr. Gtz if patient needs the Xanax PRN added to their medication list. NICKI Cason faxed clinical updates to [facility] and [facility]. Discharge plan: [facility] with [facility]
--- NOTE | 2024-07-25 16:50 | NUR ---
human service worker attended multidisciplinary team meeting. Once patient is medically ready for discharge, patient can return to [facility] with [facility] as long as the facility is able to meet patient's needs. Everyone was in agreement with this plan. Discharge plan: [facility] with [facility]
[2024-07-26] VITALS (16 sets, daily range): BP systolic 122–157; BP diastolic 55–94; PULSE 58–89; TEMP 97.3–98.7
[2024-07-26 07:08] LABS: CALCIUM 8.7 mg/dL (8.4-10.2); CREATININE, serum 1.27 mg/dL (0.57-1.11); POTASSIUM 3.8 mEq/L (3.5-4.5)
--- NOTE | 2024-07-26 07:54 | NUR ---
CRITICAL LAB REPORTED CO 13. REPORTED TO ARMINDA PICHARDO
[2024-07-26 09:26] LABS: BASO # 0.1 K/mm3 (0.0-0.2); BASO % 0.7 % (0.0-2.0); EOS # 0.1 K/mm3 (0.0-0.7); EOS % 1.8 % (0.0-4.0); GRAN # 5.6 K/mm3 (1.4-6.5); GRAN % 79.1 % (42.2-75.2); LYMPH # 0.9 K/mm3 (1.2-3.4); LYMPH % 12.5 % (20.0-51.0); MEAN CELL VOLUME 87 fl (80.0-100.0); MEAN CORPUSCULAR HGB CONC 33 g/dl (33.0-37.0); MEAN PLATELET VOLUME 8.5 fl (7.4-10.4); MONO # 0.4 K/mm3 (0.1-0.6); MONO % 5.3 % (1.7-9.3); PLATELET COUNT 454 K/mm3 (130-400); RED BLOOD COUNT 2.84 M/mm3 (4.10-5.30); REDCELL DISTRIBUTION WIDTH-CV 14.3 % (11.5-14.5)
[2024-07-26 09:29] LABS: HEMATOCRIT 24.7 % (37.0-47.0); HEMOGLOBIN 8.1 g/dl (12.5-16.0); MEAN CORPUSCULAR HEMOGLOBIN 29 pg (27-31)
--- NOTE | 2024-07-26 11:23 | NUR ---
Advertising Writer faxed clinical updates to [facility] and [facility].
--- NOTE | 2024-07-26 13:00 | NUR ---
SHIFT ASSESSMENT COMPLETE. VSS. PATIENT RESTING IN BED, HAS CALLED OUT A COUPLE TIMES CONFUSED ON WHERE SHE IS AND WHY. PATIENT FAMILY HAS ARRIVED AND ARE AT BEDSIDE PATIENT SEEMS MORE CALM WHEN THEY ARE HERE WITH HER. ALL MORNING MEDS GIVEN ORDERED. PATIENT NPO DUE TO PROCEEDURE TO BE DONE TODAY BY DR. SANTAMARIA. PATIENT EXPRESSES NO NEEDS AT THIS TIME, EXPRESSES NO PAIN. BED ALARM ON AND CALL LIGHT IN REACH
[2024-07-26] MEDS ORDERED: LR 1,000 ML IV SCH (14:23)
--- NOTE | 2024-07-26 17:16 | NUR ---
tool worker attended interdisciplinary clinical rounding with Dr. Boothe. Patient is not medically ready for discharge. Plan for discharge at this time to return to [facility] with [facility]. NICKI received a call from Karlos with [facility] whom expressed Tee at [facility] is going to speak with patient's family regarding hospice. Karlos reported Tee informed him they would like to use [facility] services if family chooses hospice. NICKI explained she would follow up with family after Tee discusses this with them. NICKI attended the multidisciplinary team meeting and updated them on the above information. NICKI was notified family wanted to see how patient did with this surgery today and determine hospice or continue medical care afterwards. Discharge plan: Return to [facility]
[2024-07-26] MEDS ORDERED: OLANZapine 5 MG TAB PO SCH (19:00)
--- NOTE | 2024-07-26 20:04 | NUR ---
Patient resting in bed. Denies any pain or needs at this time. Patient is A&O x3 at this time, unable to state what year or month it is. Assessment complete. IV in left AC flushes easily without complications. Dressing to saccrum changed at 1919, wet-to-dry dressing in place. Daughter and Son at bedside. Call light and personal items in reach. Bed in low postion and bed alarm on.
--- NOTE | 2024-07-26 20:16 | NUR ---
Report given to SHAWN Estrada from PACU. Patient off the unit at this time for wound debridement.
[2024-07-26] MEDS ORDERED: fentaNYL 50 MCG/ML 2 ML VIAL ONE (20:32)
[2024-07-26] MEDS ORDERED: ePHEDrine 50 MG/ML VIAL ONE (21:03)
[2024-07-26] MEDS ORDERED: Lidocaine PF 2% (20 MG/ML) 5 ML VIAL ONE (21:16)
[2024-07-26] MEDS ORDERED: NS 10 ML IV ONE (21:16)
[2024-07-26] MEDS ORDERED: Phenylephrine 10 MG/ML VIAL ONE (21:16)
[2024-07-26] MEDS ORDERED: Ondansetron 4 MG/2 ML VIAL ONE (21:16)
[2024-07-26] MEDS ORDERED: dexAMETHasone 10 MG/ML VIAL ONE (21:16)
--- NOTE | 2024-07-26 22:00 | NUR ---
Report recieved from SHAWN Estrada from PACU. All questions answered at this time.
--- NOTE | 2024-07-26 22:15 | NUR ---
Patient arrived back to room 344 with SHAWN Estrada. Saccral dressing assessed. Patient alert. Post-op VS initiated. No complaints of pain at this time. Water and snack provided.
[2024-07-27] VITALS (14 sets, daily range): BP systolic 108–155; BP diastolic 61–87; PULSE 56–74; TEMP 96.2–97.6
[2024-07-27 06:39] LABS: MEAN CELL VOLUME 87 fl (80.0-100.0); MEAN CORPUSCULAR HGB CONC 33 g/dl (33.0-37.0); MEAN PLATELET VOLUME 8.8 fl (7.4-10.4); PLATELET COUNT 466 K/mm3 (130-400); RED BLOOD COUNT 3.06 M/mm3 (4.10-5.30); REDCELL DISTRIBUTION WIDTH-CV 14.3 % (11.5-14.5)
[2024-07-27 06:42] LABS: HEMATOCRIT 26.5 % (37.0-47.0); HEMOGLOBIN 8.7 g/dl (12.5-16.0); MEAN CORPUSCULAR HEMOGLOBIN 28 pg (27-31)
[2024-07-27 07:00] LABS: CALCIUM 8.5 mg/dL (8.4-10.2); CREATININE, serum 0.86 mg/dL (0.57-1.11); POTASSIUM 4.4 mEq/L (3.5-4.5)
[2024-07-27 07:35] LABS: BAND 3 % (0-10); LYMPHOCYTE 5 % (20.0-51.0); NEUTROPHILS 92 % (42.0-75.2); OVALOCYTES 1+
[2024-07-27 07:36] LABS: PLATELET ESTIMATE INCREASED (NORMAL)
--- NOTE | 2024-07-27 16:53 | NUR ---
tar pot worker attended interdiscplinary clinical rounding with Dr. Boothe. Dr. Boothe reports patient would be medically ready for discharge and asked if patient's facility would transport or if family would do so. NICKI contacted Tee at [facility] and provided a verbal update on how patient has done with PT. NICKI asked Tee if they had the conversation with family about hospice as [facility] reported to her that she was going to have that conversation. Tee reported they did not have that conversation and that was not what was stated to Karlos at [facility]. At this time, patient's family is continuing with medical care not pursuing hospice. Tee stated they could transport patient as long as she would be able to sit in a wheelchair. NICKI explained patient has been up in her recliner and believes she would be able to be in a wheelchair but would verify with nursing. NICKI contacted patient's daughter to discuss discharge and IM. Kamille, daughter, reported that Dr. Avelar informed her yesterday that patient would be in the hospital for a couple days after surgery and that she was not ready today. Kamille requested to speak with Dr. Boothe. NICKI provided the phone to Dr. Boothe whom reported she is okay with patient not discharging today and would speak with Dr. Avelar. Nicki left voicemail for Tee at [facility] stating patient would not be ready for discharge today. NICKI received another call from Kamille asking if Dr. Gtz was available at the hospital. NICKI explained Dr. Gtz was not on rotation. NICKI explained she would speak with patient's nurse to update her on this situation and see if Dr. Avelar can speak with her. Kamille was adamant that patient will not be discharging today or tomorrow and patient needs to be on antibiotics. NICKI expressed she would relay her concerns to patient's nurse and Dr. Boothe. NICKI updated patient's nurse, Edenilson, on the above information. NICKI also updated Natasha, Med/Surg Nurse Director. Edenilson spoke with Dr. Avelar whom reported he informed patient's daughter yesterday that normally patient's stay for a couple days when they are septic but ultimately it is up to the hospitalist to determine when patient is medically ready for discharge. Edenilson informed patient's daughter of this information and explained that patient may be medically ready tomorrow and will request Dr. Avelar speak with her. NICKI faxed clinical updates to [facility] and [facility]. Discharge plan: Return to [facility] with [facility]
--- NOTE | 2024-07-27 23:17 | NUR ---
PATIENT ALERT AND ORIENTED X2 WITH CONFUSION. PATIENT ATTEMPTED TO CLIMB OUT OF BED SEVERAL TIMES UPON START OF SHIFT. ASSESSMENT PERFORMED. PM MEDS ADMINISTERED. PATIENT IN BED, TELESITTER APPLIED. IV TO RIGHT FA INT AND FLUSHES WELL. PATIENT HAS HAD 5 BM'S SO FAR THIS SHIFT. DRESSING CHANGES AFTER EACH BM. NO FURTHER NEEDS. CALL LIGHT IN REACH. BED ALARM ON.
[2024-07-28] VITALS (7 sets, daily range): BP systolic 110–158; BP diastolic 68–83; PULSE 42–73; TEMP 96.9–98.1
--- NOTE | 2024-07-28 07:13 | NUR ---
PATIENT EXPERIENCED SEVERAL BOUTS OF INCONTINENCE OF STOOL, TEN TO BE EXACT. REPORTED TO PA. SHIVANI VERBAL ORDER TO INSERT RECTAL TUBE. PATIENT TOLERATED WELL.
[2024-07-28] MEDS ORDERED: cefTRIAXone 1 G in Water For Injection,Sterile 10 ML IV ONE (11:30)
--- NOTE | 2024-07-28 13:12 | NUR ---
grease worker attended interdisciplinary clinical rounding with Dr. Boothe. Patient is medically ready for discharge. Dr. Boothe spoke with patient's daughter, Kamille. NICKI spoke with [facility] regarding patient's ability to transfer. Kavita at [facility] stated they are unable to transport patient today as they only have two people but patient's daughter transports patient. NICKI explained she would speak with the nurse to make sure they could assist patient into the vehicle as patient is unable to transfer on her own. Kavita stated they would be able to help get patient out of the vehicle once she arrives. NICKI confirmed with patient that they could help get patient into the vehicle. NICKI faxed clinical updates to [facility] and [facility]. NICKI contacted Kamille, patient's daughter, whom expressed she was okay with patient returning to [facility] today. Kamille asked how they would get patient onto hospice care if it came to that in the future. NICKI explained [facility] would be able to assist them with getting the services implemented but she could have those services added at anytime. Kamille explained she and her family members are going to discuss but at this time they would like to move forward with [facility]. NICKI explained she would leave the Medicare.gov for hospice agencies with patient's discharge paperwork. NICKI reviewed IM with Kamille via telephone as patient has been confused. Kamille understood and had no questions. Kamille provided verbal consent for the form. NICKI made a copy, placed original in chart and placed copy with discharge papers for patient. Kamille expressed she would come supervisor picking crew patient around 12 today. No further questions or concerns at this time. NICKI notified patient's nurse, community marketing manager, Dr. Boothe and [facility]. NICKI faxed discharge orders to [facility] and [facility]. NICKI notified Leonides at [facility] that patient will be discharging today back to [facility]. NICKI faxed discharge instructions for wound care to [facility] and [facility]. Discharge plan: [facility] with [facility]
== END 2024-07-28 12:30 | disposition home health service (06) | DRG 871 ==
LOC: COL.ER 11:15 → SURG 13:21
PROVIDERS: Emergency Medicine; Physician Assistant; ADMIT Internal Medicine
DX: A41.51 Sepsis due to Escherichia coli [E. coli] (principal); L89.153 Pressure ulcer of sacral region, stage 3; E87.20 Acidosis, unspecified; E44.0 Moderate protein-calorie malnutrition; N39.0 Urinary tract infection, site not specified; Z66 Do not resuscitate; I12.9 Hypertensive chronic kidney disease with stage 1 through stage 4 chronic kidney disease, or unspecified chronic kidney disease; E16.2 Hypoglycemia, unspecified; N18.30 Chronic kidney disease, stage 3 unspecified; R33.9 Retention of urine, unspecified; Z79.899 Other long term (current) drug therapy; Z79.82 Long term (current) use of aspirin; Z88.8 Allergy status to other drugs, medicaments and biological substances; Z85.848 Personal history of malignant neoplasm of other parts of nervous tissue; Z68.20 Body mass index [BMI] 20.0-20.9, adult; D63.1 Anemia in chronic kidney disease
CPT/HCPCS: J0665; J0690; J0696; J1100; J1644; J2371; J2405; J2543; J2704; J3010; J3370; J7030; J7050